=== PATIENT | male | born 1995 | race Caucasian/White ===

== ENCOUNTER 2022-05-10 13:56 | Emergency (ER) | payer SELFPAY ==
[~2022-05-10] VITALS: Ht 185.4 cm; Wt 141.3 kg
[2022-05-10 14:16] VITALS: BP 134/69
[2022-05-10 15:37] LABS: BASOPHILS % (AUTO) 0.3 % (0.0-2.0); EOSINOPHILS # (AUTO) 0.1 K/uL (0-0.4); EOSINOPHILS % (AUTO) 0.8 % (0.0-4.0); HEMATOCRIT 48.6 % (36-52); HEMOGLOBIN 16.6 g/dL (12.0-18.0); LYMPHOCYTES # (AUTO) 1.5 K/uL (2.0-11.5); LYMPHOCYTES % (AUTO) 14.4 % (20.5-51.1); MEAN CORPUSCULAR HEMOGLOBIN 29 pg (27-31); MEAN CORPUSCULAR HGB CONC 34 g/dL (33-37); MEAN CORPUSCULAR VOLUME 85.4 fL (80-94); MONOCYTES # (AUTO) 0.6 K/uL (0.8-1.0); MONOCYTES % (AUTO) 6.2 % (1.7-9.3); NEUTROPHILS # (AUTO) 8.1 K/uL (1.8-7.7); NEUTROPHILS % (AUTO) 78.3 % (42.2-75.2); PLATELET COUNT (AUTO) 357 K/uL (140-450); RED BLOOD CELL COUNT(AUTO) 5.69 MIL/uL (4.20-6.10); RED CELL DISTRIBUTION WIDTH 13.7 % (11.6-13.7); WHITE BLOOD COUNT (AUTO) 10.3 K/uL (4.8-10.8)
[2022-05-10 15:58] LABS: ALBUMIN 3.9 g/dL (3.4-5.0); ANION GAP 11.8 (8-16); CARBON DIOXIDE 28.1 mmol/L (21-32); CREATININE 0.8 mg/dL (0.6-1.3); POTASSIUM 3.9 mmol/L (3.5-5.1); TOTAL BILIRUBIN 2.3 mg/dL (0.0-1.0)
[2022-05-10] MEDS ORDERED: IBUP-2213 PO (18:09)
[2022-05-10] MEDS ORDERED: HYDR-5080 PO (18:09)
--- NOTE | 2022-05-10 18:15 | NUR ---
BIB SELF C/O 10/01 RUQ ABD PAIN X 4 DAYS AND N/V/D X TODAY. PMH: DENIES
--- NOTE | 2022-05-10 18:19 | NUR ---
COVID SWAB DONE.
[2022-05-10 18:24] VITALS: BP 124/67
--- NOTE | 2022-05-10 18:24 | NUR ---
Patient discharged with v/s stable. Written and verbal after care instructions given and explained. Patient alert, oriented and verbalized understanding of instructions. Ambulatory with steady gait. All questions addressed prior to discharge. ID band removed. Patient advised to follow up with PMD. Rx of IBUPROFEN, NORCO given. Patient educated on indication of medication including possible reaction and side effects. Opportunity to ask questions provided and answered.
== END 2022-05-10 18:24 | disposition home or self-care (01) ==
LOC: MED 13:56
DX: K80.20 Calculus of gallbladder without cholecystitis without obstruction (principal); Z20.822 Contact with and (suspected) exposure to COVID-19; Z79.899 Other long term (current) drug therapy
CPT/HCPCS: 36415; 76705; 80053; 83605; 83690; 85025; 86886; 86900; 86901; 87040; 87426; 99284; Q0092

== ENCOUNTER 2023-11-02 14:31 | Emergency (ER) | payer SELFPAY ==
[~2023-11-02] VITALS: Ht 185.4 cm; Wt 127.0 kg
[~2023-11-02 14:31] MED LIST: HYDR-5080 PO; IBUP-2213 PO
[2023-11-02 15:12] VITALS: BP 108/66; PULSE 78; RESP 18; TEMP 97.9; O2SAT 98
[2023-11-02] MEDS ORDERED: LID5T TP (16:05)
[2023-11-02] MEDS ORDERED: METH-1681 PO (16:05)
[2023-11-02] MEDS ORDERED: KETO10TA2 PO (16:05)
[2023-11-02] MEDS: KETOROLAC 60 MG/2 ML VIAL IM ONE (16:24)
== END 2023-11-02 16:37 | disposition home or self-care (01) ==
LOC: MED 14:31
DX: S39.012A Strain of muscle, fascia and tendon of lower back, initial encounter (principal); R03.0 Elevated blood-pressure reading, without diagnosis of hypertension; Z79.1 Long term (current) use of non-steroidal anti-inflammatories (NSAID); Z79.899 Other long term (current) drug therapy; X58.XXXA Exposure to other specified factors, initial encounter; Y93.89 Activity, other specified; Y92.89 Other specified places as the place of occurrence of the external cause; Y99.8 Other external cause status
CPT/HCPCS: 96372; 99283; J1885